=== PATIENT | female | born 1995 | race Caucasian/White ===

== ENCOUNTER → 2020-08-21 09:31 | Outpatient (CLI) | payer OTHER, SELFPAY ==
[2020-08-21 10:21] LABS: Add Manual Diff / Slide Review NO; Basophils Absolute Auto 100 /uL (0-100); Basophils Percent Auto 1.3 % (0-2); Eosinophils Absolute Auto 300 /uL (0-450); Hematocrit 40.8 % (36-46); Hemoglobin 13.6 g/dL (12.0-16.0); Lymphocytes Absolute Auto 1400 /uL (1100-4500); Lymphocytes Percent Auto 34.8 % (25-40); Mean Corpuscular HGB Conc 33.4 % (30-36); Mean Corpuscular Hemoglobin 31.6 PG (26-34); Mean Corpuscular Volume 94.7 fL (80-100); Monocytes Absolute Auto 400 /uL (0-900); Monocytes Percent Auto 9.6 % (3-14); Neutrophils Absolute Auto 1800 /uL (1500-7000); Neutrophils Percent Auto 46.3 % (50-75); Platelet Count 228 X10^3/uL (150-400); Red Cell Distribution Width 12.9 % (11.6-14.8)
[2020-08-21 11:06] LABS: Free T4, Direct Thyroxine 1.17 ng/dL (0.78-2.19)
[2020-08-21 11:20] LABS: Thyroid Stimulating Hormone 1.16 uIU/mL (0.47-4.68)
[2020-08-22 06:41] LABS: Varicella IgG Antibody 2986 index (Immune >165)
[2020-08-22 08:28] LABS: Mumps Virus IgG Antibody 83.3 AU/mL (Immune >10.9)
[2020-08-26 17:24] LABS: Rubella Antibody IgG 54.8 IU/mL (>15)
== END ==
PROVIDERS: PCP Obstetrics & Gynecology; Referring Provider Obstetrics & Gynecology; Visit Provider Obstetrics & Gynecology
DX: Z31.69 Encounter for other general counseling and advice on procreation (principal)
CPT/HCPCS: 36415; 84439; 84443; 85025; 86735; 86762; 86765; 86787

== ENCOUNTER → 2020-09-09 08:17 | Outpatient (CLI) | payer OTHER, SELFPAY ==
--- NOTE | 2020-09-09 08:18 | DI.US.S_ITS ---
PROCEDURE: US BREAST LT LIMITED COMPARISON: None. INDICATIONS: LEFT BREAST LUMP FINDINGS: IMPRESSION: Dictated by: Edgard Khalil M.D. on 09/09/2020 at 10:08 Approved by: Edgard Khalil M.D. on 09/09/2020 at 10:11
--- NOTE | 2020-09-09 08:31 | DI.US.S_ITS ---
Date: 09/09/2020 09:53 At the request of: KING TAPIA Procedure: US breast LT limited ULTRASOUND OF LEFT BREAST: 09/09/2020 CLINICAL: Palpable left breast lump and focal pain. No prior exams were available for comparison. Real-time and Doppler ultrasound of the left breast were performed. Edwards scale images of the real-time examination were reviewed. IMPRESSION: NEGATIVE There is no sonographic evidence of malignancy. There are no abnormalities seen in the left breast to correspond with the areas of clinical concern and pain at 1, 2, 3, and 12 o'clock. Recommendation clinical follow-up and repeat exam if there is any change clinically. This exam was interpreted at Station ID: [id number]. Electronically Signed By: Edgard Khalil acr/:09/09/2020 12:45:21 letter sent: Clinical Evaluation Ultrasound BI-RADS: 1 Negative
== END ==
PROVIDERS: PCP Obstetrics & Gynecology; Referring Provider Obstetrics & Gynecology; Visit Provider Obstetrics & Gynecology
DX: N63.25 Unspecified lump in the left breast, overlapping quadrants (principal); N64.4 Mastodynia
CPT/HCPCS: 76642